=== PATIENT | female | born 1940 | race Caucasian/White ===

== ENCOUNTER 2020-08-13 15:49 | Outpatient (REF) | payer MEDICARE, MEDICAID, SELFPAY ==
--- NOTE | ~2020-08-13 | MM_ITS ---
EXAMINATION: MM SCREENING DIGITAL BREAST TOMOSYNTHESIS, BILATERAL CLINICAL INFORMATION: Screening. Asymptomatic. The lifetime risk of breast cancer based on the Tyrer-Cuzick Model is 1.0%. COMPARISON: Mammography: February 09, 2018 and studies dating back to February 03, 2005 TECHNIQUE: Digital breast tomosynthesis is performed in both the craniocaudal and mediolateral oblique views along with computer-aided detection (CAD). Synthesized 2D images are generated from the tomosynthesis. FINDINGS: There are scattered areas of fibroglandular density (ACR BI-RADS breast composition Category b). There are no significant masses, abnormal calcifications, or other abnormalities. There is stable bilateral nodularity present. MM/MM tomosynthesis screening BI IMPRESSION: There are no significant changes from prior study. ASSESSMENT: BI-RADS 1: Negative RECOMMENDATION: Routine annual mammography screening. This patient's information was entered into a reminder system with a target due date for their next mammogram.
== END 2020-08-13 15:50 | disposition home or self-care (01) ==
LOC: HO.MAMMO 15:49
PROVIDERS: Visit Provider Internal Medicine
DX: Z12.31 Encounter for screening mammogram for malignant neoplasm of breast (principal)
CPT/HCPCS: 77063; 77067

== ENCOUNTER 2021-04-16 13:28 | Outpatient (REF) | payer MEDICARE, MEDICAID, SELFPAY ==
--- NOTE | ~2021-04-16 | MM_ITS ---
EXAMINATION: BONE DENSITOMETRY CLINICAL INDICATION: Menopausal. COMPARISON: Previous BD dated 10/29/2017 and baseline BD dated 02/03/2005. TECHNIQUE: Using a [employer] DXA System (software version: 13.1) manufactured by [employer], dual-energy x-ray absorptiometry was performed of the lumbar spine and left hip. The images are of good technical quality. Summary results are attached. FINDINGS: AP SPINE L1-L4: Current: BMD 0.964 g/cm2, Z-score -0.3, T-score -1.8, osteopenia, 3.1% increase from previous, 7.0% increase from baseline (<5% change is not significant). Prior: BMD 0.935 g/cm2. Baseline: BMD 0.901 g/cm2. LEFT FEMUR, NECK: Current: BMD 0.674 g/cm2, Z-score -0.7, T-score -2.6, osteoporosis. Prior: BMD 0.723 g/cm2. Baseline: BMD 0.766 g/cm2. LEFT FEMUR, TOTAL: Current: BMD 0.685 g/cm2, Z-score -0.8, T-score -2.6, osteoporosis, 2.6% decrease from previous, 8.7% decrease from baseline (<5% change is not significant). Prior: BMD 0.703 g/cm2. Baseline: BMD 0.750 g/cm2. IDENTIFIED RISK FACTORS: Dementia, height loss, low calcium intake. Early menopause, secondary osteoporosis. HISTORY OF FRACTURE: None listed. MEDICATIONS: Calcium supplements or multivitamin, vitamin D. MM/XR DEXA axial skeleton IMPRESSION: 1. DIAGNOSIS: Osteoporosis based on the lowest T-score value of -2.6 in the femoral neck and total femur applying World Health Organization criteria. 2. 10-YEAR FRACTURE RISK PREDICTION, FRAX: According to the guidelines, FRAX calculation should only be performed on patients in the osteopenia bone density category. Therefore, FRAX was not performed on this patient. 3. Treatment Recommendations: NOF guidelines recommend consideration for treatment in postmenopausal women and men age 50 and older presenting with the following: -A hip or vertebral (clinical or morphometric) fracture. -T-score less than or equal to -2.5 at the femoral neck or spine after appropriate evaluation to exclude secondary causes. -Low bone mass at the hip or spine and a 10-year fracture probability by FRAX of greater than or equal to 3% for hip fracture or greater than or equal to 20% for major osteoporotic fracture based on the [place] adapted WHO algorithm. 4. Other Recommendations: All treatment decisions require clinical judgment and consideration of individual patient factors, including patient preferences, comorbidities, previous drug use, risk factors not captured in the FRAX model (e.g. frailty, falls, vitamin D deficiency, increased bone turnover, interval significant decline in bone density) and possible under or overestimation of fracture risk by FRAX. Additional medical evaluation for secondary cause of low bone mineral density may be appropriate. FUTURE SCAN RECOMMENDATION: People with diagnosed cases of osteoporosis or at high risk for fracture should have regular bone mineral density tests. For patients eligible for Medicare, routine testing is allowed once every 2 years. The testing frequency can be increased to one year for patients who have rapidly progressing disease, those who are receiving or discontinuing medical therapy to restore bone mass, or have additional risk factors.
== END 2021-04-16 13:29 | disposition home or self-care (01) ==
LOC: HO.MAMMO 13:28
PROVIDERS: PCP Internal Medicine; Visit Provider Internal Medicine
DX: Z13.820 Encounter for screening for osteoporosis (principal); E58 Dietary calcium deficiency; R29.890 Loss of height; Z78.0 Asymptomatic menopausal state
CPT/HCPCS: 77080

== ENCOUNTER 2021-08-19 10:19 | Outpatient (REF) | payer MEDICARE, MEDICAID, SELFPAY ==
--- NOTE | ~2021-08-19 | MM_ITS ---
EXAMINATION: MM SCREENING DIGITAL BREAST TOMOSYNTHESIS, BILATERAL CLINICAL INFORMATION: Screening. Asymptomatic. The lifetime risk of breast cancer based on the Tyrer-Cuzick Model is under 2%. COMPARISON: Mammography: 08/13/2020; outside mammography 06/10/2017, 05/25/2016 ([facility]). TECHNIQUE: Digital breast tomosynthesis is performed in both the craniocaudal and mediolateral oblique views along with computer-aided detection (CAD). Synthesized 2D images are generated from the tomosynthesis. Additional bilateral MLO views are provided. FINDINGS: There are scattered areas of fibroglandular density (ACR BI-RADS breast composition Category b). Parenchymal pattern is similar to prior studies. There are scattered bilateral fine smooth nodularity without interval developing density or significant mass or architectural abnormality. No abnormal calcifications. Again, there is biopsy clip marker posterior upper outer right breast. Scattered high attenuation punctate foci overlie both high axilla on MLO views related to skin on tomography, likely deodorant artifact. MM/MM tomosynthesis screening BI IMPRESSION: No mammographic evidence of malignancy. ASSESSMENT: BI-RADS 2: Benign RECOMMENDATION: Routine annual mammography screening. This patient's information was entered into a reminder system with a target due date for their next mammogram.
== END 2021-08-19 10:20 | disposition home or self-care (01) ==
LOC: HO.MAMMO 10:19
PROVIDERS: Visit Provider Internal Medicine
DX: Z12.31 Encounter for screening mammogram for malignant neoplasm of breast (principal)
CPT/HCPCS: 77063; 77067

== ENCOUNTER 2022-10-02 09:42 | Outpatient (REF) | payer MEDICARE, MEDICAID, SELFPAY ==
[2022-10-02 12:08] LABS: Alanine Aminotransferase 8 U/L (0-31); Albumin Level 4.2 g/dL (3.5-5.0); Alkaline Phosphatase 51 U/L (39-117); Anion Gap 14 (12-20); Aspartate Amino Transferase 14 U/L (5-31); Bilirubin Total 0.5 mg/dL (0.0-1.0); Blood Urea Nitrogen 17 mg/dL (9-16); Calcium 9.6 mg/dL (8.4-10.2); Carbon Dioxide 26 mmol/L (22-29); Chloride 103 mmol/L (96-108); Cholesterol 252 mg/dL; Estimated Glomerular Filt Rate > 60; Glucose Random 111 mg/dL (60-115); HDL Cholesterol 58 mg/dL; LDL Cholesterol Calculated 167 mg/dl; Potassium 3.9 mmol/L (3.3-5.1); Sodium 139 mmol/L (135-145); Total Protein 7.7 g/dL (6.5-8.0); Triglycerides 137 mg/dL
== END 2022-10-02 09:43 | disposition home or self-care (01) ==
LOC: HO.HHCL 09:42
PROVIDERS: Visit Provider Nurse Practitioner Family
DX: I10 Essential (primary) hypertension (principal); E78.2 Mixed hyperlipidemia
CPT/HCPCS: 36415; 80053; 80061

== ENCOUNTER 2023-05-19 11:13 | Outpatient (AMB) | payer MEDICARE, MEDICAID, SELFPAY ==
--- NOTE | 2023-05-19 11:15 | A.OFFVIS_ITS ---
Intake Intake Visit Reasons: urinary inctoninence Intake Note: New Patient presents for initial visit for Incontinence Urology Medications: none Blood Thinner: aspirin PVR: 0ml's Manager Channel Required: Yes Manager Channel Name: CARSON SHEFFIELD Accompanied by: Unknown Allergies No Known Allergies Allergy (Unknown, Unverified 05/19/23 11:59) Medication List - Last Reconciled 05/19/23 by MARILEE Castelan amlodipine 10 mg PO DAILY aspirin 81 mg PO QAM atorvastatin 40 mg PO DAILY carvedilol 25 mg PO BID cholecalciferol (vitamin D3) 50 mcg PO QAM cyanocobalamin (vitamin B-12) 1,000 mcg PO QAM donepezil 10 mg PO DAILY hydrochlorothiazide 25 mg PO DAILY lisinopril 40 mg PO DAILY HPI HPI Comments History of Present Illness Details Yenni is a very pleasant 82-year-old Luxembourger-speaking female patient of Dr. Moss who was accompanied by her daughter at today's office visit. She has a past medical history of hypertension and demenita. She presents to the office today as a new patient for urinary frequency. In discussion with the patient today she notes a longstanding history of urinary frequency without any other urological issues or concerns. She denies urianary urgency, incontinence, nocturia, hematuria, dysuria, foul smelling urine, changes to urinary stream, flank pain, fever, and or chills. Discussed at length potential causes for urinary frequency. Unable to obtain urine for urinalysis today however PVR 0 mL. Discussed obtaining retroperitoneal ultrasound for further assessment evaluation. She otherwise denies any other issues or concerns. [facility] Medical History Hypertension Review of Systems Const All systems reviewed & are unremarkable except as noted in HPI and below Card Reports as per HPI Reports as per HPI Neuro Reports as per HPI Physical Exam Const General: cooperative, healthy appearing, comfortable, no acute distress, well developed, alert and awake Orientation/consciousness: patient oriented x3 Limitations: no limitations HEENT Head: Yes normal to inspection, Yes normocephalic and Yes atraumatic Ears: hearing grossly normal bilaterally Eyes General: appearance normal, both eyes and all related structures Neck Neck: Yes normal visual inspection and Yes trachea midline Chest Chest palpation & inspection: normal inspection of the chest Resp Effort & Inspection: normal respiratory effort and able to speak in complete sentences Cardio Rate: regular rate GI Inspection: Yes normal to inspection General: Yes no CVA tenderness Back/Spine/Pelvis Back: no CVA tenderness Skin General skin exam: no rashes or lesions noted Neuro General: patient oriented x3 Extrem General: Yes normal to inspection Psych Appearance: grossly normal and well kempt Mental Status: mental status grossly normal Speech and movement: Normal speech and movement present and Clear speech present Affect: normal affect Attitude: cooperative Thought process: Normal thought process present Thought content: Normal thought content present Insight: Fair insight present (Psych) Judgement: Fair judgement present (Psych) Office Procedures Post Void Residual Post Residual Void Post Void Residual (PVR): 0 29524-Ykjl Void Residual by ultrasound Assessment & Plan Assessment & Plan (1) Urinary frequency: Code(s): R35.0 - Frequency of micturition Plan Unable to obtain urine for urinalysis however PVR 0 mL. Discussed at length potential causes for urinary frequency. Discussed obtaining retroperitoneal ultrasound for further assessment evaluation. Discussed bladder triggers/irritants. Discussed attempting to bladder diary also discussed voiding schedule. Follow-up in 1-3 months with imaging to be completed prior; or sooner with any issues, concerns, and or questions. Orders: Orders US retroperitoneal comp Today R35.0 - Frequency of micturition AMB Urinalysis Automated Today Z13.9 - Encounter for screening, unspecified AMB Post Void Residual by ultrasound Today Z13.9 - Encounter for screening, unspecified Patient Instructions: The patient had an opportunity to ask questions regarding the treatment plan. All questions were answered. Physical exam, labs, and imaging were discussed and reviewed in detail. As well as risks, benefits, and discussion of treatment choices. No major barriers to understanding were identified. The patient expressed understanding and agreement with the above treatment plan. The patient was made aware they should contact our office by phone for worsening of their current condition, the appearance of new symptoms, or with any questions or concerns. Compliance is encouraged with any medications and follow up testing that is ordered. It is a privilege to be allowed the opportunity to participate in? your urological care.? Again, if you have any questions or concerns If you have any questions or concerns please do not hesitate to contact me. The office is [phone]. This note is constructed using voice recognition software. While every effort has been made to ensure accuracy direct support staff member errors may have been included. Yours sincerely, MARCELLA Castelan- Coding Level of Care Code New Pt Level 3 (89766) Diagnoses Urinary frequency R35.0 CPT Codes Post Residual Void - PVR CPT Code: 93030-Dsmp Void Residual by ultrasound ([id number])
== END 2023-05-19 11:57 | disposition home or self-care (01) ==
PROVIDERS: PCP Internal Medicine; Visit Provider Nurse Practitioner Family
DX: R35.0 Frequency of micturition (principal)
CPT/HCPCS: 99203

== ENCOUNTER → 2023-05-19 11:13 | Outpatient (BNVA) | payer MEDICARE, MEDICAID, SELFPAY | PROVIDERS: PCP Internal Medicine; Visit Provider Nurse Practitioner Family | DX: R35.0 Frequency of micturition (principal) | CPT/HCPCS: 51798; 99202 ==

== ENCOUNTER 2023-07-06 10:15 | Outpatient (REF) | payer MEDICARE, MEDICAID, SELFPAY ==
--- NOTE | ~2023-07-06 | US_ITS ---
EXAMINATION: US RETROPERITONEAL COMPLETE (RENAL) CLINICAL INFORMATION: Frequency of micturition. COMPARISON: None available. TECHNIQUE: Real-time imaging of the kidneys and bladder. FINDINGS: RIGHT KIDNEY: 10.0 x 4.5 x 4.4 cm (SAG x AP x TRV). The kidney is normal in size, contour, and echogenicity. Renal cortical thickness is normal. No calculi or focal parenchymal lesions. No hydronephrosis. LEFT KIDNEY: 10.0 x 4.8 x 4.0 cm (SAG x AP x TRV). The kidney is normal in size, contour, and echogenicity. Renal cortical thickness is normal. No renal calculi or hydronephrosis. 1.9 cm echogenic mass with possible internal calcium in the lower pole. BLADDER: Well distended and normal. Bilateral ureteral jets are demonstrated. Prevoid bladder volume is 192.4 mL. Postvoid bladder volume is 19.6 mL. US/US retroperitoneal comp IMPRESSION: 1.9 cm echogenic mass in the lower pole of the left kidney. This could possibly be an angiomyolipoma, however a solid mass with calcification is not excluded. Recommend further evaluation with CT abdomen without and with contrast.
== END 2023-07-06 10:16 | disposition home or self-care (01) ==
LOC: HO.US 10:15
PROVIDERS: PCP Internal Medicine; Visit Provider Nurse Practitioner Family
DX: R35.0 Frequency of micturition (principal)
CPT/HCPCS: 76770

== ENCOUNTER 2025-01-29 11:58 | Outpatient (REF) | payer MEDICARE, MEDICAID, SELFPAY ==
--- OUTSIDE RECORDS SUMMARY | 2025-01-29 11:15 | XMS_ITS | Encounter Summary ---
Author Organization [employer] Address [address] [place] [address] Care Team Providers Care Quality Assurance Auditor Name Role Phone Name, Felix HOWELL Primary Care Provider [phone] Reason for Visit * Reason Comments Hypertension Encounter Details Date Type Department Care Team ([facility] Contact Info) Description 01/29/2025 11:15 AM EST Office Visit [facility] MEDICINE [address] [place] [address] Name, MD Felix [address] [place], [place] [phone] Dementia without behavioral disturbance (CMS/HCC) (HCC) (Primary Dx); Hypertension, unspecified type; Encounter for immunization Social History Tobacco Use Types Packs/Day Years Used Date Smoking Tobacco: Never Smokeless Tobacco: Never Tobacco Cessation:Counseling Given: Not Answered Alcohol Use Standard Drinks/Week Comments Never 0 (1 standard drink = 0.6 oz pur e alcohol) Depression Answer Date Recorded Patient Health Questionnaire-9 Score 2 01/29/2025 Patient Health Questionnaire-9 Score 2 01/29/2025 Last PHQ-9: Questionnaire Data Not on file 1 03/31/2024 Housing Stability Answer Date Recorded What is your housing situation today? I have smith abraham 01/29/[address] you li ve. Do you have problems with any of the following? None of the above 01/29/2025 Food Insecurity Answer Date Recorded Within the past 12 months, y ou worried that your food would run out before you got money to buy more: Never True 01/29/2025 Within the past 12 months,th e food you bought just didn't last and you didn't have enough money to get more: Never True Transportation Answer Date Recorded In the past 12 months, has l ack of transportation kept you from medical appts, meetings, work or from getting things needed for daily living? No 01/29/2025 Utilities Answer Date Recorded In the past 12 months, has t he electric, gas, oil or water company threatened to shut off services in your home? No 01/29/2025 Depression Answer Date Recorded Patient Health Questionnaire-2 Score 0 01/29/2025 Internet Access Answer Date Recorded Internet Access Q1 Yes 01/29/2025 Internet Access Q2 Not on file 01/29/2025 Comments Unknown Sex and Gender Information Value Date Recorded Sex Assigned at Female 01/05/2022 10:14 AM EDT Legal Sex Female 10:14 AM EDT Gender Identity Female 01/05/2022 10:14 AM EDT Sexual Orientation Straight 01/05/2022 10 :14 AM EDT documented as of this encounter Last Filed Vital Signs Vital Sign Reading Time Taken Comments Blood Pressure 142/90 01/29/2025 11:24 AM EST Pulse 87 01/29/2025 11:24 AM EST Temperature 35.1 C (95.1 F) 01/29/2025 11:24 AM EST Respiratory Rate 12 01/29/2025 11:24 AM EST Oxygen Saturation - - Inhaled Oxygen Concentration - - Weight 49.3 kg (108 lb 9.6 oz) 01/29/2025 11:24 AM EST Height 165.1 cm (5' 5 ) 01/29/2025 11:24 AM EST Body Mass Index 18.07 01/29/2025 11:24 AM EST documented in this encounter Functional Status * Over the past 2 weeks, how often have you been bothered by any of the following problems? Question Answer Date of Assessment Author Patient Health Questionnaire-2 Score 0 01/29/2025 11:52 AM EST Damion Anne MA * Little interest or pleasure in doing things Answer Date of Assessment Author Not at all 01/29/2025 11:52 AM EST Madhuri Anne MA * Feeling down, depressed, or hopeless Answer Date of Assessment Author Not at all 01/29/2025 11:52 AM EST Madhuri Anne MA * Trouble falling or staying asleep, or sleeping too much Answer Date of Assessment Author Several days 01/29/2025 11:52 AM Madhuri Andrade MA * Feeling tired or having little energy Answer Date of Assessment Author Not at all 01/29/2025 11:52 AM Madhuri Andrade MA * Poor appetite or overeating Answer Date of Assessment Author Not at all 01/29/2025 11:52 AM Madhuri Andrade MA * Feeling bad about yourself - or that you are a failure or have let yourself or your family down Answer Date of Assessment Author Not at all 01/29/2025 11:52 AM Madhuri Andrade MA * Trouble concentrating on things, such as reading the newspaper or watching television Answer Date of Assessment Author Not at all 01/29/2025 11:52 AM Madhuri Andrade MA * Moving or speaking so slowly that other people could have noticed? Or the opposite - being so fidgety or restless that you have been moving around a lot more than usual. Answer Date of Assessment Author Several days 01/29/2025 11:52 AM Madhuri Andrade MA * Thoughts that you would be better off or hurting yourself in some way Answer Date of Assessment Author Not at all 01/29/2025 11:52 AM Madhuri Andrade MA * Patient Health Questionnaire-9 Score Answer Date of Assessment Author 2 01/29/2025 11:52 AM Madhuri Andrade MA * Over the last 2 weeks, how often have you been bothered by any of the following problems? Question Answer Date of Assessment Author Feeling nervous, anxious, or on edge 1 01/29/2025 11:52 AM Malaika Andrade MA Not being able to stop or control worrying 0 01/29/2025 11:52 AM Malaika Andrade MA Worrying too much about different things 0 01/29/2025 11:52 AM Malaika Andrade MA Trouble relaxing 0 01/29/2025 11:52 AM Madhuri Andrade MA Being so restless that it is hard to sit still 1 01/29/2025 11:52 AM Malaika Andrade MA Becoming easily annoyed or irritable 0 01/29/2025 11:52 AM Malaika Andrade MA Feeling afraid as if something awful might happen 0 01/29/2025 11:52 AM Madhuri Gallo MA MAGDALENA-7 Total Score 2 01/29/2025 11:52 AM Madhuri Andrade MA * How difficult have these problems made it for you to do your work, take care of things at home, or get along with other people? Answer Date of Assessment Author Not difficult at all 01/29/2025 11:52 AM Madhuri Alvarez MA documented as of this encounter Progress Notes * Felix Carpenter MD - 01/29/2025 11:15 AM EST Subjective Patient ID: Yenni Padilla is a 84 y.o. female who presents for Hypertension. Patient comes for a follow-up visit. The patient has severe dementia. The patient depends on her family for ADLs and IADLs. The patient is accompanied by her granddaughter and her daughter. The patient's main cattle driver is her granddaughter there is also a COMMERCIAL REAL ESTATE AGENT. The patient is very well-kept. The family denies any complaints. The patient has a med box and has been using medications as prescribed. Blood pressure is slightly elevated today. Family agreed with flu vaccination and Tdap vaccination for the patient today. They also agreed to take the patient for fasting blood work. Review of Systems Constitutional: Negative for chills and fever. HENT: Negative for sore throat. Respiratory: Negative for cough, shortness of breath and wheezing. Cardiovascular: Negative for chest pain, palpitations and leg swelling. Gastrointestinal: Negative for abdominal pain. Objective Vitals: 01/29/25 1124 BP: (!) 142/90 BP Location: Left arm Patient Position: Sitting BP Cuff Size: Adult Pulse: 87 Resp: 12 Temp: 95.1 ??F (35.1 ??C) TempSrc: Temporal Weight: 108 lb 9.6 oz (49.3 kg) Height: 5' 5 (1.651 m) Physical Exam Constitutional: Appearance: Normal appearance. Cardiovascular: Rate and Rhythm: Normal rate and regular rhythm. Pulmonary: Effort: Pulmonary effort is normal. No respiratory distress. Breath sounds: Normal breath sounds. No wheezing. Neurological: Mental Status: She is alert. Assessment/Plan Diagnoses and all orders for this visit: Dementia without behavioral disturbance (CMS/HCC) (HCC) Comments: Family denies any concerns. She has adequate level supervision at home. At this time she needs 28/09 supervision Hypertension, unspecified type Comments: Continue current medications. Check fasting blood listed below Orders: - Comprehensive Metabolic Panel; Future - CBC auto differential; Future - Lipid Panel, Standard; Future Encounter for immunization - FLU VACCINE TRIVALENT HIGH DOSE [id number] (Fluzone) 65 yrs + - TDAP VACCINE 7 yrs + documented in this encounter Plan of Treatment Scheduled Orders Name Type Priority Associated Diagnoses Orde r Schedule Comprehensive Metabolic Panel Lab Routine Hypertension, unspecified type Expected: 01/29/2025 (Approximate), Expires: 01/29/2026 Lipid Panel, Standard Lab Routine Hypertension, unspecified type Expected: 01/29/2025 (Approximate), Expires: 01/29/2026 documented as of this encounter Procedures Procedure Name Priority Date/Time Associated Diagnosis Comments CBC WITH AUTO DIFFERENTIAL Routine 01/29/2025 12:08 PM EST Hypertension, unspecified type documented in this encounter Results * (ABNORMAL) CBC auto differential (01/29/2025 12:08 PM EST) White Blood Count 4.0(L) 4.8 - 10.8 X10*3/uL [facility] Red Blood Count 4.01(L) 4.20 - 5.50 X10*6/uL [facility] Hemoglobin 11.8(L) 12.0 - 16.0 g/dl [facility] Hematocrit 37.2 37.0 - 47.0 % [facility] Mean Corpuscular Volume 92.8 80.0 - 98.0 fL [facility] Mean Corpuscular Hemoglobin 29.4 27.0 - 33.0 pg [facility] Mean Corpuscular HGB Conc 31.7 31.0 - 35.0 g/dl [facility] Red Cell Distribution Width 12.0 11.0 - 16.0 % [facility] Platelet Count 197 160 - 400 X10*3/uL [facility] Mean Platelet Volume 9.9 9.4 - 12.3 fL [facility] Neutrophils Percent Auto 54.0 45 - 73 % [facility] Imm Gran Pct Auto 0.3 0.0 - 0.4 % [facility] Lymphocytes Percent Auto 38.1 20 - 40 % [facility] Monocytes Percent Auto 5.3 2 - 11 % [facility] Eosinophils Percent Auto 1.5 0 - 4 % [facility] Basophils Percent Auto 0.8 0 - 2 % [facility] NRBC Pct Auto 0.0 0.0 - 0.2 /100WBC [facility] Neutrophils Absolute Auto 2.2 2.0 - 8.3 x10*3/uL [facility] Imm Gran Abs Auto 0.01 0.00 - 0.03 X10*3/uL [facility] Lymphocytes Absolute Auto 1.5 1.2 - 4.9 X10*3/uL [facility] Monocytes Absolute Auto 0.2 0.1 - 1.2 X10*3/uL [facility] Eosinophils Absolute Auto 0.1 0.0 - 0.4 X10*3/uL [facility] Basophils Absolute Auto 0.0 0.0 - 0.2 X10*3/uL [facility] NRBC Abs Auto 0.000 0.0 - 0.012 X10*3/uL [facility] Blood Venous blood specimen / Unknown 01/29/2025 12:08 PM EST 01/29/2025 1:04 PM EST us Felix Carpenter MD LAB BLOOD ORDERABLES Final Resul t [facility] [address] [place] [address] [phone] documented in this encounter Visit Diagnoses Diagnosis Dementia without behavioral disturbance (CMS/HCC) (HCC)- Primary Hypertension, unspecified type Encounter for immunization documented in this encounter Additional Health Concerns Assessment Noted Time PHQ-9 Depression Total Score: 2 01/30/20 25 11:52 AM EST documented as of this encounter Care Teams Quality Assurance Auditor Relationship Specialty Start Date End Date Name, MD Felix [address] [place] [address] PCP - General Internal Medicine 11/10/23 documented as of this encounter
[2025-01-29 13:11] LABS: MANUAL DIFF FLAG NO
[2025-01-29 13:16] LABS: Hematocrit 37.2 % (37.0-47.0); Hemoglobin 11.8 g/dl (12.0-16.0); Imm Gran Abs Auto 0.01 X10*3/uL (0.00-0.03); Imm Gran Pct Auto 0.3 % (0.0-0.4); Lymphocytes Absolute Auto 1.5 X10*3/uL (1.2-4.9); Mean Corpuscular HGB Conc 31.7 g/dl (31.0-35.0); Mean Corpuscular Hemoglobin 29.4 pg (27.0-33.0); Mean Corpuscular Volume 92.8 fL (80.0-98.0); NRBC Abs Auto 0.000 X10*3/uL (0.0-0.012); NRBC Pct Auto 0.0 /100WBC (0.0-0.2); Platelet Count 197 X10*3/uL (160-400); Red Blood Count 4.01 X10*6/uL (4.20-5.50); White Blood Count 4.0 X10*3/uL (4.8-10.8)
--- OUTSIDE RECORDS SUMMARY | 2025-01-29 15:56 | XMS_ITS | Encounter Summary ---
Author Organization [employer] Address [address] [facility] [address] [place] [address] Care Team Providers Care Door Framer Name Role Phone Name, Felix HOWELL Primary Care Provider [phone] Reason for Visit * Reason Onset Date Comments Appointment Request 11/08/2024 Encounter Details Date Type Department Care Team ([facility] Contact Info) Description 11/08/2024 Telephone [facility] MEDICINE [address] [place] [address] Name, MD Felix [address] [place] [address] Appointment Request Social History Tobacco Use Types Packs/Day Years Used Date Smoking Tobacco: Never Smokeless Tobacco: Never Alcohol Use Standard Drinks/Week Comments Never 0 (1 standard drink = 0.6 oz pur e alcohol) Depression Answer Date Recorded Patient Health Questionnaire-9 Score 11 11/01/2023 Patient Health Questionnaire-9 Score 11 11/01/2023 Last PHQ-9: Questionnaire Data Not on file 0 11/01/2023 Housing Stability Answer Date Recorded What is your housing situation today? I have smith abraham 11/01/[address] you li ve. Do you have problems with any of the following? None of the above 11/01/2023 Food Insecurity Answer Date Recorded Within the past 12 months, y ou worried that your food would run out before you got money to buy more: Never True 11/01/2023 Within the past 12 months,th e food you bought just didn't last and you didn't have enough money to get more: Never True Transportation Answer Date Recorded In the past 12 months, has l ack of transportation kept you from medical appts, meetings, work or from getting things needed for daily living? No 11/01/2023 Utilities Answer Date Recorded In the past 12 months, has t he electric, gas, oil or water company threatened to shut off services in your home? No 11/01/2023 Depression Answer Date Recorded Patient Health Questionnaire-2 Score 3 11/01/2023 Internet Access Answer Date Recorded Internet Access Q1 Yes 11/08/2023 Internet Access Q2 Not on file 11/08/2023 Comments Unknown Sex and Gender Information Value Date Recorded Sex Assigned at Female 01/05/2022 10:14 AM EDT Legal Sex Female 10:14 AM EDT Gender Identity Female 01/05/2022 10:14 AM EDT Sexual Orientation Straight 01/05/2022 10 :14 AM EDT documented as of this encounter Miscellaneous Notes * Telephone Encounter - Felix Craft - 11/08/2024 11:07 AM EDT Tc from pt granddaughter (verbal confirmation) requesting to r/s no showed apt from 07/24. Contact pt granddaughter at [phone] documented in this encounter Plan of Treatment Not on file documented as of this encounter Visit Diagnoses Not on filedocumented in this encounter Additional Health Concerns Assessment Noted Time PHQ-9 Depression Total Score: 11 024 10:27 AM EDT documented as of this encounter Care Teams Door Framer Relationship Specialty Start Date End Date Name, MD Felix [address] [place] [address] PCP - General Internal Medicine 11/10/23 documented as of this encounter
--- OUTSIDE RECORDS SUMMARY | 2025-01-29 15:56 | XMS_ITS | Encounter Summary ---
Author Organization [employer] Address [address] [facility] [address] [place] [address] Care Team Providers Care Trim Carpenter Name Role Phone Name, Felix HOWELL Primary Care Provider [phone] Milagros Toledo Primary Care Provider [phone] Name, Felix HOWELL Primary Care Provider [phone] Encounter Details Date Type Department Care Team ([facility] Contact Info) Description 05/20/2022 Orders Only [facility] CHC MED & PEDS [address] [place] [address] Nicolasa Mackey LPN Social History Tobacco Use Types Packs/Day Years Used Date Smoking Tobacco: Never Assessed Depression Answer Date Recorded Patient Health Questionnaire-9 Score 5 05/22/2022 Depression Answer Date Recorded Patient Health Questionnaire-2 Score 1 05/22/2022 Comments Unknown Sex and Gender Information Value Date Recorded Sex Assigned at Female 01/05/2022 10:14 AM EDT Legal Sex Female 10:14 AM EDT Gender Identity Female 01/05/2022 10:14 AM EDT Sexual Orientation Straight 01/05/2022 10 :14 AM EDT COVID-19 Exposure Response Date Recorded In the last 10 days, have yo u been in contact with someone who was confirmed or suspected to have Coronavirus/COVID-19? No / Unsure 05/22/2022 10:24 AM EDT documented as of this encounter Functional Status * Over the past 2 weeks, how often have you been bothered by any of the following problems? Question Answer Date of Assessment Author Patient Health Questionnaire-2 Score 1 05/06 10:49 AM EDT Tiffany Kenny * How difficult have these problems made it for you to do your work, take care of things at home, or get along with other people? Answer Date of Assessment Author Not difficult at all 05/22/2022 10:49 AM EDT Tiffany Stroud * Over the past 2 weeks, how often have you been bothered by any of the following problems? Question Answer Date of Assessment Author Little interest or pleasure in doing things Not at all 05/22/2022 10:49 AM Tiffany Silverman Feeling down, depressed, or hopeless Several days 05/22/2022 10:49 AM EDT Tiffany Kenny Trouble falling or staying asleep, or sleeping too much Not at all 05/22/2022 10:49 AM EDT Tiffany Kenny Feeling tired or having jian le energy Several days 05/22/2022 10:49 AM Tiffany Silverman Poor appetite or overeating Several days 05/22/2022 10 :49 AM EDTiffany Garnica Feeling bad about yourself - or that you are a failure or have let yourself or your family down Not at all 05/22/2022 10:49 AM EDT Tiffany Stroud Trouble concentrating on thi ngs, such as reading the newspaper or watching television Several days 05/22/2022 10:49 AM Tiffany Silverman Moving or speaking so slowly that other people could have noticed? Or the opposite - being so fidgety or restless that you have been moving around a lot more than usual. Several days 05/22/2022 10:49 AM Tiffany Silverman Thoughts that you would be b tremayne off or hurting yourself in some way Not at all 05/22/2022 10:49 AM Tiffany Silverman Patient Health Questionnaire -9 Score 5 05/22/2022 10:49 AM Tiffany Silverman documented as of this encounter Plan of Treatment Not on file documented as of this encounter Visit Diagnoses Not on filedocumented in this encounter Care Teams Trim Carpenter Relationship Specialty Start Date End Date Name, MD Felix [address] [place] [address] PCP - General Internal Medicine 02/02/22 07/01/22 Milagros Toledo FNP [address] [place] [address] PCP - General Family Medicine 07/02/22 11/09/23 Felix Carpenter MD [address] [place] [address] PCP - General Internal Medicine 11/10/23 documented as of this encounter
--- OUTSIDE RECORDS SUMMARY | 2025-01-29 15:56 | XMS_ITS | Encounter Summary ---
Author Organization [employer] Address [address] [facility] [address] [place] [address] Care Team Providers Care Electric Frying Pan Repairer Name Role Phone ParisMilagros MARCELLA Primary Care Provider [phone] Name, Felix HOWELL Primary Care Provider [phone] Reason for Visit * Reason Comments Med Refill Encounter Details Date Type Department Care Team ([facility] Contact Info) Description 02/03/2023 Refill [facility] CHC MED & PEDS [address] [place], [place] [id number] Name, MD Felix [address] [place] [address] Hypertension, unspecified type Social History Tobacco Use Types Packs/Day Years Used Date Smoking Tobacco: Never Smokeless Tobacco: Never Alcohol Use Standard Drinks/Week Comments Never 0 (1 standard drink = 0.6 oz pur e alcohol) Depression Answer Date Recorded Patient Health Questionnaire-9 Score 5 05/22/2022 Housing Stability Answer Date Recorded What is your housing situation today? I have smith abraham 12/25/[address] you li ve. Do you have problems with any of the following? None of the above 12/25/2022 Food Insecurity Answer Date Recorded Within the past 12 months, y ou worried that your food would run out before you got money to buy more: Never True 12/25/2022 Within the past 12 months,th e food you bought just didn't last and you didn't have enough money to get more: Never True Transportation Answer Date Recorded In the past 12 months, has l ack of transportation kept you from medical appts, meetings, work or from getting things needed for daily living? No 12/25/2022 Utilities Answer Date Recorded In the past 12 months, has t he electric, gas, oil or water company threatened to shut off services in your home? No 12/25/2022 Depression Answer Date Recorded Patient Health Questionnaire-2 Score 1 05/22/2022 Comments Unknown Sex and Gender Information Value Date Recorded Sex Assigned at Female 01/05/2022 10:14 AM EDT Legal Sex Female 10:14 AM EDT Gender Identity Female 01/05/2022 10:14 AM EDT Sexual Orientation Straight 01/05/2022 10 :14 AM EDT documented as of this encounter Plan of Treatment Not on file documented as of this encounter Visit Diagnoses Diagnosis Hypertension, unspecified type documented in this encounter Additional Health Concerns Assessment Noted Time PHQ-9 Depression Total Score: 5 05/23/19 23 10:49 AM EDT documented as of this encounter Care Teams Electric Frying Pan Repairer Relationship Specialty Start Date End Date Milagros Toledo FNP [address] [place] [address] PCP - General Family Medicine 07/02/22 11/09/23 Name, MD Felix [address] [place] [address] PCP - General Internal Medicine 11/10/23 documented as of this encounter
--- OUTSIDE RECORDS SUMMARY | 2025-01-29 15:56 | XMS_ITS | Clinical Summary ---
Author Organization [facility] Address [address] [place] [address] Care Team Providers Care X Ray Consultant Name Role Phone Unavailable Primary Care Provider Unavailabl e Social History Tobacco Use Types Packs/Day Years Used Date Smoking Tobacco: Never Assessed Comments Unknown Sex and Gender Information Value Date Recorded Sex Assigned at Not on file Legal Sex Female 5:37 AM EST Gender Identity Not on file Sexual Orientation Not on file Plan of Treatment Health Maintenance Due Date Last Done Comments DTaP,Tdap,and Td Vaccines (1 - Tdap) 1959 Pneumococcal Vaccine: 50+ Ye ars (1 of 1 - PCV) 10/08/1991 Zoster Vaccines (1 of 2) 10/08/1991 RSV Immunization Adult Patie nts (1 - 1-dose 75+ series) 2016 Depression Screening 03/08/2024 COVID-19 Vaccine ( - 2024-2 6 season) 2024 Influenza Vaccine (#1) 2024 HIB Vaccines Aged Out No longer eligi ble based on patient's age to complete this topic HPV Vaccines Aged Out No longer eligi ble based on patient's age to complete this topic Hepatitis A Vaccines Aged Out No long er eligible based on patient's age to complete this topic Hepatitis B Vaccines Aged Out No long er eligible based on patient's age to complete this topic IPV Vaccines Aged Out No longer eligi ble based on patient's age to complete this topic MMR Vaccines Aged Out No longer eligi ble based on patient's age to complete this topic Meningococcal ACWY Vaccine Aged Out N o longer eligible based on patient's age to complete this topic Meningococcal B Vaccine Aged Out No l onger eligible based on patient's age to complete this topic RSV Immunization Patients Un yoan 20 months Aged Out No longer eligible b ased on patient's age to complete this topic Varicella Vaccines Aged Out No longer eligible based on patient's age to complete this topic
--- OUTSIDE RECORDS SUMMARY | 2025-01-29 15:56 | XMS_ITS | Encounter Summary ---
Author Organization [employer] Address [address] [facility] [address] [place] [address] Care Team Providers Care Armored Car Driver Name Role Phone Milagros Toledo Primary Care Provider [phone] Name, Felix HOWELL Primary Care Provider [phone] Encounter Details Date Type Department Care Team (Late st Contact Info) Description 07/12/2023 Orders Only [facility] CHC MED & PEDS [address] [place], [place] [phone] Milagros Toledo FNP [address] [place], [place] [phone] Social History Tobacco Use Types Packs/Day Years Used Date Smoking Tobacco: Never Smokeless Tobacco: Never Alcohol Use Standard Drinks/Week Comments Never 0 (1 standard drink = 0.6 oz pur e alcohol) Depression Answer Date Recorded Patient Health Questionnaire-9 Score 5 05/22/2022 Housing Stability Answer Date Recorded What is your housing situation today? I have smithtraci abraham 12/25/[address] you [...] documented as of this encounter Care Teams Armored Car Driver Relationship Specialty Start Date End Date Milagros Toledo FNP [address] [place] [address] PCP - General Family Medicine 07/02/22 11/09/23 Name, MD Felix [address] [place] [address] PCP - General Internal Medicine 11/10/23 documented as of this encounter
--- OUTSIDE RECORDS SUMMARY | 2025-01-29 15:57 | XMS_ITS | Encounter Summary ---
Author Organization [employer] Address [address] [facility] [address] [place] [address] Care Team Providers Care Deer Farm Worker Name Role Phone Name, Felix HOWELL Primary Care Provider [phone] Encounter Details Date Type Department Care Team (Latest Contact Info) Description 01/29/2025 Travel Social History Tobacco Use Types Packs/Day Years [...] Health Questionnaire-2 Score 0 01/29/2025 11:52 AM Damion Andrade [place] * Little interest or pleasure in doing things Answer Date of Assessment Author Not at all 01/29/2025 11:52 AM Madhuri Andrade [place] * Feeling down, depressed, or hopeless Answer Date of Assessment Author Not at all 01/29/2025 11:52 AM Madhuri Andrade [place] * Trouble falling or staying asleep, [...] Alvarez [place] documented as of this encounter Plan of Treatment Not on file documented as of this encounter Visit Diagnoses Not on filedocumented in this encounter Additional Health Concerns Assessment Noted Time PHQ-9 Depression Total Score: 2 01/30/20 11:52 AM EST documented as of this encounter Care Teams Deer Farm Worker Relationship Specialty Start Date End Date Name, MD Felix [address] [place] [address] PCP - General Internal Medicine 11/10/23 documented as of this encounter
--- OUTSIDE RECORDS SUMMARY | 2025-01-29 15:57 | XMS_ITS | Encounter Summary ---
Author Organization [employer] Address [address] [facility] [address] [place] [address] Care Team Providers Care Needle Loom Setter Name Role Phone ParisMilagros MARCELLA Primary Care Provider [phone] Name, Felix HOWELL Primary Care Provider [phone] Reason for Visit * Reason Comments Med Refill Encounter Details Date Type Department Care Team ([facility] Contact Info) Description 03/31/2023 Refill [facility] CHC MED & PEDS [address] [place], [place] [id number] Name, MD Felix [address] [place] [address] Hypertension, unspecified type Social History Tobacco Use [...] documented as of this encounter Care Teams Needle Loom Setter Relationship Specialty Start Date End Date Milagros Toledo FNP [address] [place] [address] PCP - General Family Medicine 07/02/22 11/09/23 Name, MD Felix [address] [place] [address] PCP - General Internal Medicine 11/10/23 documented as of this encounter
--- OUTSIDE RECORDS SUMMARY | 2025-01-29 15:57 | XMS_ITS | Encounter Summary ---
Author Organization [employer] Address [address] [facility] [address] [place] [address] Care Team Providers Care End Maker Name Role Phone Name, Felix HOWELL Primary Care Provider [phone] Reason for Visit * Reason Onset Date Comments CHARTPREP 01/26/2025 Encounter Details Date Type Department Care Team ([facility] Contact Info) Description 01/26/[address] [facility] MEDICINE [address] [place], [place] [phone] Name, MD Felix [address] [place] [address] CHARTPREP Social History Tobacco Use Types Packs/Day Years [...] encounter Miscellaneous Notes * Telephone Encounter - Yogesh Boogie MA - 01/26/2025 11:08 AM EST Chart Prep Labs: not applicable Images: not applicable Referrals: not applicable Vaccines due: Covid, Flu, Tdap, and RSV Screenings: n/a Overdue care gaps: SBIRT, SDOH, PHQ-9, MAGDALENA-7, and Tobacco documented in this encounter Plan of Treatment Not on file documented as of this encounter Visit Diagnoses Not on filedocumented in this encounter Additional Health Concerns Assessment Noted Time PHQ-9 Depression Total Score: 11 024 10:27 AM EDT documented as of this encounter Care Teams End Maker Relationship Specialty Start Date End Date Name, MD Felix [address] [place] [address] PCP - General Internal Medicine 11/10/23 documented as of this encounter
--- OUTSIDE RECORDS SUMMARY | 2025-01-29 15:57 | XMS_ITS | Clinical Summary ---
Author Organization [employer] Address [address] [facility] [address] [place] [address] Care Team Providers Care Electrical Prospector Name Role Phone Name, Felix HOWELL Primary Care Provider [phone] Allergies No known active allergies Medications alendronate (Fosamax) 70 MG tabletIndication s:Hypertension, unspecified type take 1 tablet by oral route every week in the morning, at least 30 min before first food, beverage, or medication of day 12 tablet 3 3 Active Blood Pressure Monitor kit 1 Device in the morning. 1 kit 4 Active amLODIPine (Norvasc) 10 MG tablet Take 0.5 tablets (5 mg) by mouth in the morning. 15 tablet 11 4 Active lisinopril 40 MG tabletIndication s:Hypertension, unspecified type TAKE 1 TABLET BY MOUTH EVERYDAY AT NOON 90 tablet 3 5 Active Aspirin EC Adult Low Dose 81 MG EC tabletIndication s:Hypertension, unspecified type TAKE 1 TABLET BY MOUTH EVERY MORNING 90 tablet 3 5 Active amLODIPine (Norvasc) 10 MG tablet TAKE 1 TABLET BY MOUTH EVERY MORNING 30 tablet 11 5 Active cholecalciferol VITAMIN D (Vitamin D-3) 50 MCG (1999) tabletIndication s:Vitamin D deficiency TAKE 1 TABLET BY MOUTH EVERY MORNING 90 tablet 1 5 Active Oyster Shell Calcium + D3 500-10 MG-MCG tabletIndication s:Routine general medical examination at a health care facility TAKE 1 TABLET BY MOUTH TWICE DAILY IN THE MORNING AND IN THE EVENING 180 tablet 1 5 Active metoprolol succinate XL (Toprol-XL) 25 MG 24 hr tablet TAKE 1 TABLET BY MOUTH EVERY MORNING DO NOT BREAK, CRUSH, DISSOLVE OR CHEW 30 tablet 11 5 Active donepezil (Aricept) 10 MG tabletIndication s:Dementia, unspecified dementia severity, unspecified dementia type, unspecified whether behavioral, psychotic, or mood disturbance or anxiety (CMS/HCC) (HCC) TAKE 1 TABLET BY MOUTH EVERY EVENING 30 tablet 3 5 Active cyanocobalamin (Vitamin B-12) 1000 MCG tabletIndication s:B12 deficiency TAKE 1 TABLET BY MOUTH EVERY MORNING 90 tablet 1 5 Active atorvastatin (Lipitor) 40 MG tablet TAKE 1 TABLET BY MOUTH EVERY MORNING 90 tablet 1 5 Active hydroCHLOROthiaz lucinda (HYDRODiuril) 25 MG tablet TAKE 1 TABLET BY MOUTH EVERY MORNING 90 tablet 3 5 Active Active Problems Problem Noted Date Diagnosed Date Pernicious anemia 07/23/2017 Dementia with behavioral disturbance (CMS/HCC) 0 08/31/2016 Urge incontinence of urine 05/28/2016 Assessment & Plan (03/28/2023 10:25 AM EST): -Urine dipstick today Glu neg, ketones trace, nitrates and LE neg -Today CBG 165 hb1AC 5.5 -send today UA w reflex cx to hospital -will call pt w result and will start ATB then if needed but will hold for now -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 today 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 -f w PCP and alarm signs and symptoms discussed w pt Cobalamin deficiency 07/30/2012 Aortic valve stenosis 03/18/2012 Left ventricular hypertrophy 03/18/2012 Systolic murmur 03/18/2012 Hypertension 07/07/2011 Assessment & Plan (03/28/2023 10:23 AM EST): Not took BP this am any of them and pt is in mx BP meds-per daugther her BP usually in 150s or below at home Denies any alarming symptoms and normal exam ,seems chronic uncontrolled HTN w no concerning findings -alarm signs and symptoms discussed w pt and daughter -advised to take BP meds at soon gets home -will hold on changes now w BP < 150s per daughter -got apt for Pt to f w PCP in next 4 weeks to monitor BP -advised daughter to bring home BP readings then Pure hypercholesterolemia 07/07/2011 Resolved Problems Problem Noted Date Diagnosed Date Resolved Date Blurring of visual image 08/31/2016 Impaired cognition 05/28/2016 Depressive disorder 09/01/2011 01/30/20 Encounters Date Type Department Care Team Description 01/29/2025 11:15 AM EST Office Visit [facility] [address] [place] [id number] Felix Carpenter MD Dementia without behavioral disturbance (CMS/HCC) (HCC) (Primary Dx); Hypertension, unspecified type; Encounter for immunization 01/29/2025 Travel 01/26/[address] [address] Felix Carpenter MD CHARTPREP 11/27/[address] [address] Milagros Toledo FNP 11/09/[address] [address] Madhuri Anne [place] Appointment Request 11/08/[address] [address] Felix Carpenter MD Appointment Request from Last 3 Months Immunizations Immunization Administration Dates Next Due Influenza High-dose Quadriva lent Preservative Free 12/05/2019 Influenza injectable quadriv alent IIV4 with preservative 12/31/2014 Influenza injectable quadriv alent preservative free 01/21/2021,05/28/2016,04/13/2014 Influenza, High Dose Seasona l, Preservative Free 01/29/2025,03/07/2024,01/26/2019 Influenza, IIV3, injectable 11/04/2010 Influenza, Split (incl. jairon fied surface antigen) 03/18/2012 Pneumococcal Conjugate PCV 13 12/31/2014 Pneumococcal Polysaccharide PPSV23 03/18/2012 TD (adult), 2 Lf tetanus tox oid, preservative free, adsorbed 06/07/1996 Tdap 01/29/2025,04/13/2014 Zoster, Recombinant 05/09/2019,02/22/2019 Zoster, live 12/31/2014 Family History Medical History Relation Name Comments Uterine cancer Daughter Cancer Sister Relation Name Status Comments Daughter Sister Social History Tobacco Use Types Packs/Day Years [...] Orientation Straight 01/05/2022 10 :14 AM EDT Last Filed Vital Signs Vital Sign Reading Time Taken Comments Blood Pressure 142/90 01/29/2025 11:24 AM EST Pulse 87 01/29/2025 11:24 AM EST Temperature 35.1 C (95.1 F) 01/29/2025 11:24 AM EST Respiratory Rate 12 01/29/2025 11:24 AM EST Oxygen Saturation 97% 03/07/2024 10:15 AM EST Inhaled Oxygen Concentration - - Weight 49.3 kg (108 lb 9.6 oz) 01/29/2025 11:24 AM EST Height 165.1 cm (5' 5 ) 01/29/2025 11:24 AM EST Body Mass Index 18.07 01/29/2025 11:24 AM EST Plan of Treatment Health Maintenance Due Date Last Done Comments RSV Patients and Patients Aged 60 years or older (1 - 1-dose 75+ series) 2016 COVID-19 Vaccine ( - season) 2024 Alcohol/Substance Use Screening 01/29/2026 01/29/2025 Depression Screening 01/29/2026 01/29/2025, 01/30/20 SDOH Screening 01/29/2026 01/29/2025 Tobacco Screening 01/29/2026 01/29/2025 Lipid Panel 10/03/2027 10/02/2022, 01/08, 11/29/2019 DTaP/Tdap/Td Vaccines (3 - Td or Tdap) 01/29/2035 01/29/2025, 04/13/2014, 06/07/1996 Pneumococcal Vaccine: 50+ Years Completed 12/31/2014, 03/18/2012 Zoster Vaccines Completed 05/09/2019, 02/05, 12/31/2014 Influenza Vaccine Completed 01/29/2025, , 01/21/2021, Additional history exists HIB Vaccines Aged Out No longer eligi [...] patient's age to complete this topic Meningococcal Vaccine Aged Out No samy mikael eligible based on patient's age to complete this topic RSV under 20 months Aged Out No longe r eligible based on patient's age to complete this topic Rotavirus Vaccines Aged Out No longer eligible based on patient's age to complete this topic Procedures Procedure Name Priority Date/Time Associated Diagnosis Comments CBC WITH AUTO DIFFERENTIAL Routine 01/29/2025 12:08 PM EST Hypertension, unspecified type LIPID PANEL, STANDARD Routine 10/02/2022 9:50 AM EDT Mixed hyperlipidemia from Last 3 Months or Most Recently Relevant to Health Maintenance Results * (ABNORMAL) CBC auto differential (01/29/2025 12:08 PM EST) White Blood Count 4.0(L) 4.8 - 10.8 X10*3/uL [facility] Red Blood Count 4.01(L) 4.20 - 5.50 X10*6/uL [facility] Hemoglobin 11.8(L) 12.0 - 16.0 g/dl [facility] Hematocrit 37.2 37.0 - 47.0 % [facility] Mean Corpuscular Volume 92.8 80.0 - 98.0 fL [facility] Mean Corpuscular Hemoglobin 29.4 27.0 - 33.0 pg [facility] Mean Corpuscular HGB Conc 31.7 31.0 - 35.0 g/dl [facility] Red Cell Distribution Width 12.0 11.0 - 16.0 % [facility] Platelet Count 197 160 - 400 X10*3/uL [facility] Mean Platelet Volume 9.9 9.4 - 12.3 fL [facility] Neutrophils Percent Auto 54.0 45 - 73 % [facility] Imm Gran Pct Auto 0.3 0.0 - 0.4 % [facility] Lymphocytes Percent Auto 38.1 20 - 40 % [facility] Monocytes Percent Auto 5.3 2 - 11 % [facility] Eosinophils Percent Auto 1.5 0 - 4 % [facility] Basophils Percent Auto 0.8 0 - 2 % [facility] NRBC Pct Auto 0.0 0.0 - 0.2 /100WBC [facility] Neutrophils Absolute Auto 2.2 2.0 - 8.3 x10*3/uL [facility] Imm Gran Abs Auto 0.01 0.00 - 0.03 X10*3/uL [facility] Lymphocytes Absolute Auto 1.5 1.2 - 4.9 X10*3/uL [facility] Monocytes Absolute Auto 0.2 0.1 - 1.2 X10*3/uL [facility] Eosinophils Absolute Auto 0.1 0.0 - 0.4 X10*3/uL [facility] Basophils Absolute Auto 0.0 0.0 - 0.2 X10*3/uL [facility] NRBC Abs Auto 0.000 0.0 - 0.012 X10*3/uL [facility] Blood Venous blood specimen / Unknown 01/29/2025 12:08 PM EST 01/29/2025 1:04 PM EST us Felix Name MD LAB BLOOD ORDERABLES Final Resul t [facility] [address] [place] [phone] * Lipid Panel, Standard (10/02/2022 9:50 AM EDT) Triglycerides 137 mg/dL [facility] Comment:Desirable Triglyceri de: less than 150 mg/dLBorderline High Triglyceride 150-199 mg/dLHigh Triglyceride: 200-499 mg/dLVery High Triglyceride: greater than or equal to 5OO mg/dL Cholesterol 252 mg/dL [facility] Comment:Desirable Cholestero l: less than 200 mg/dLBorderline High Cholesterol: 200-239 mg/dLHigh Cholesterol: greater than 239 mg/dL LDL Cholesterol Calculated 167 mg/dl [facility] Comment:Desirable LDL: less than 100 mg/dLNear Optimal/Above Optimal LDL: 110- 129 mg/dLBorderline High LDL: 130-159 mg/dLHigh LDL: 160-189 mg/dLVery High LDL: greater than or equal to 190 mg/dL HDL Cholesterol 58 mg/dL [facility] Comment:Desirable HDL: great er than 40 mg/dL Note: This HDL assay may give artificially low results in patients with liver disease. Blood Venous blood specimen / Unknown 10/02/2022 9:50 AM EDT 10/02/2022 11:09 AM EDT Milagros Toledo FUND CONTROLLER LAB BLOOD ORDERABLES Final Resu lt [facility] [address] [place] [phone] from Last 3 Months or Most Recently Relevant to Health Maintenance Insurance MEDICARE Member Subscriber Plan / Payer (Ef fective 2022-Present) Name:Yenni Padilla Member ID:[id number] Relation to Subscriber:Self Name:Yenni Padilla Subscriber ID:[id number] Payer ID:STATE Group ID:Not on file Type:Medicare Address: [facility] [address] [id number] [facility] Advance Directives Documents on File Type Date Recorded Patient Internet Researcher Expl anation Advance Directives and Ramsey g Will 01/29/2025 2:26 PM Proxy care Care Teams Electrical Prospector Relationship Specialty Start Date End Date Name, MD Felix [address] [place] [address] PCP - General Internal Medicine 11/10/23
--- OUTSIDE RECORDS SUMMARY | 2025-01-29 15:57 | XMS_ITS | Encounter Summary ---
Author Organization [facility] Address [address] [place] [address] Care Team Providers Care Saturator Operator Name Role Phone ParisMilagros MARCELLA Primary Care Provider [phone] Name, Felix HOWELL Primary Care Provider [phone] Reason for Visit * Reason Comments Med Refill Encounter Details Date Type Department Care Team ([facility] Contact Info) Description 01/30/2023 Refill [facility] [address] [place], [place] [id number] Name, MD Felix [address] [place] [address] Hypertension, unspecified type Social History Tobacco Use [...] documented as of this encounter Care Teams Saturator Operator Relationship Specialty Start Date End Date Milagros Toledo FNP [address] [place] [address] PCP - General Family Medicine 07/02/22 11/09/23 Name, MD Felix [address] [place] [address] PCP - General Internal Medicine 11/10/23 documented as of this encounter
[2025-01-29 16:11] LABS: Alanine Aminotransferase 12 U/L (0-31); Albumin Level 4.4 g/dL (3.5-5.0); Alkaline Phosphatase 95 U/L (39-117); Anion Gap 13 (12-20); Aspartate Amino Transferase 21 U/L (5-31); Blood Urea Nitrogen 19 mg/dL (9-16); Calcium 9.7 mg/dL (8.4-10.2); Carbon Dioxide 27 mmol/L (22-29); Chloride 107 mmol/L (96-108); Cholesterol 247 mg/dL (<200); Estimated Glomerular Filt Rate > 60; HDL Cholesterol 66 mg/dL (>40); Potassium 4.0 mmol/L (3.3-5.1); Sodium 143 mmol/L (135-145); Total Protein 7.4 g/dL (6.5-8.0); Triglycerides 117 mg/dL (<150)
== END 2025-01-29 11:59 | disposition home or self-care (01) ==
LOC: HO.HHCL 11:58
PROVIDERS: PCP Internal Medicine Geriatric Medicine; Visit Provider Internal Medicine Geriatric Medicine
DX: I10 Essential (primary) hypertension (principal)
CPT/HCPCS: 36415; 80053; 80061; 85025